=== PATIENT | male | born 1990 | race Two or more races ===

== ENCOUNTER 2020-07-16 17:52 | Emergency (ER) | payer MEDICAID ==
[~2020-07-16] VITALS: Ht 172.7 cm; Wt 63.5 kg
[2020-07-16 18:18] VITALS: BP 128/73
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
[2020-07-16] MEDS ORDERED: Lidocaine 1% MPF 10mg/ml 5ml INJ ONE (18:30)
[2020-07-16] MEDS ORDERED: Azithromycin 250mg tab ORAL ONE (18:30)
--- NOTE | 2020-07-16 19:20 | NUR ---
ED Nurse Note: Recieved pt in broom awake, alert and oriented x 4, pt has been seen and waiting for labs and disposition, pt denies pain, sob, or any other discomforts or complaints, pt is here for STD check, pt given water, will resume care as ordered and continue to closely monitor for any acute changes or increased distress.
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
[2020-07-16] MEDS ORDERED: CLOTRIMAZOLE15 GM TOPIC (19:37)
[2020-07-16 20:45] VITALS: BP 131/77
--- NOTE | 2020-07-16 20:45 | NUR ---
ED Nurse Note: Pt continues to wait for results, no changes or distress noted or reported, will continue to closely monitor, no s/s of adverse reaction noted from oral antibiotic meds given earlier.
[2020-07-16 21:40] VITALS: BP 131/77
--- NOTE | 2020-07-16 21:40 | NUR ---
ER DISCHARGE NOTE: Patient is cleared to be discharged per ERMD, pt is aox4, on room air, with stable vital signs. pt was given dc and prescription instructions, pt was able to verbalize understanding, pt id band removed without complications. pt is able to ambulate with steady gait. pt took all belongings. pt is with spouse.
[2020-07-16 21:51] LABS: APPEARANCE,URINE CLEAR; BILIRUBIN, URINE NEGATIVE (NEGATIVE); GLUCOSE, URINE (UA) NEGATIVE (NEGATIVE); KETONES,URINE NEGATIVE (NEGATIVE); LEUKOCYTE ESTERASE ,URINE NEGATIVE (NEGATIVE); NITRITE,URINE NEGATIVE (NEGATIVE); PH,URINE 6.5 (4.5-8.0); PROTEIN,URINE NEGATIVE (NEGATIVE); UROBILINOGEN,URINE NORMAL MG/DL (0.0-1.0)
[2020-07-16 21:53] LABS: COLOR,URINE YELLOW
== END 2020-07-16 21:40 | disposition home or self-care (01) ==
LOC: EMR 18:59
DX: Z20.2 Contact with and (suspected) exposure to infections with a predominantly sexual mode of transmission (principal); N48.1 Balanitis; F17.200 Nicotine dependence, unspecified, uncomplicated; F19.90 Other psychoactive substance use, unspecified, uncomplicated; Z72.89 Other problems related to lifestyle
CPT/HCPCS: 81003; 87491; 87590; 96372; J0696; Q0144; Z7502; 99283